=== PATIENT | female | born 1990 | race Two or more races ===

== ENCOUNTER 2019-12-29 16:15 | Observation (INO) | payer SELFPAY ==
[2019-12-29] MEDS ORDERED: PREN-96 PO (17:05)
[2019-12-29 17:44] LABS: Albumin 2.7 g/dL (3.4-5.0); BUN/Creatinine Ratio 10.7; Calcium 8.8 mg/dL (8.5-10.1); Potassium 3.9 mmol/L (3.5-5.1)
[2019-12-29 18:05] LABS: Bilirubin, Total 0.3 mg/dL (0.2-1.0); Total Protein 7.1 g/dL (6.4-8.2)
== END 2019-12-29 18:04 | disposition home or self-care (01) ==
LOC: UNDOADMOB 16:15 → LDRP 16:15 → UNDODISOB 18:04
PROVIDERS: ADMIT Specialist; ATTEND Specialist
DX: O62.9 Abnormality of forces of labor, unspecified (principal); Z3A.36 36 weeks gestation of pregnancy
CPT/HCPCS: 36415; 59025; 76818; 80053; 81002; G0378

== ENCOUNTER 2020-01-11 10:57 | Observation (INO) | payer SELFPAY ==
[~2020-01-11] VITALS: Ht 152.4 cm; Wt 74.4 kg
[~2020-01-11 10:57] MED LIST: PREN-96 PO
== END 2020-01-11 14:12 | disposition home or self-care (01) ==
LOC: LDRP 10:57
PROVIDERS: ADMIT Obstetrics & Gynecology; ATTEND Obstetrics & Gynecology
DX: O26.893 Other specified pregnancy related conditions, third trimester (principal); O99.891 Other specified diseases and conditions complicating pregnancy; R10.2 Pelvic and perineal pain; Z3A.38 38 weeks gestation of pregnancy
CPT/HCPCS: 59025; 76818; 81002; 84112; G0378; Q0114

== ENCOUNTER 2020-01-15 11:20 | Inpatient (IN) | payer MEDICAID ==
[~2020-01-15] VITALS: Ht 157.5 cm; Wt 78.9 kg
[2020-01-15] MEDS ORDERED: DERMOPLAST 60ML BOTTLE TOP PRN (12:15)
[2020-01-15] MEDS ORDERED: PHISODERM TOP SOLN 240ML BTL TOP PRN (12:15)
[2020-01-15] MEDS ORDERED: LIDOCAINE 2%HCL (LOCAL ANESTH.) INJ 20ML MDV IJ PRN (12:15)
[2020-01-15] MEDS ORDERED: WITCH HAZEL-GLYCERIN PAD TOP PRN (12:15)
[2020-01-15 13:30] LABS: Urine WBC None Seen /hpf (0 - 5)
[2020-01-15 13:34] LABS: Basophils # (auto) 0 10 ^3/uL (0-0.2); Eosinophils # (auto) 0.1 10 ^3/uL (0-0.8); Eosinophils % (auto) 0.7 % (0.0-7.0); Hemoglobin 10.8 g/dL (12.2-16.2); Nucleated Red Blood Cells % 0.1 %
[2020-01-15 13:35] LABS: Basophils % (auto) 0.2 % (0.0-2.0); Hematocrit 33.9 % (36.0-46.0); Lymphocytes # (auto) 1.3 10 ^3/uL (0.4-5.4); Lymphocytes % (auto) 15.2 % (10.0-50.0); Mean Corpuscular Hgb Conc. 31.8 g/dL (32.0-36.0); Mean Corpuscular Volume 81.9 fL (80.0-100.0); Monocytes # (auto) 0.7 10 ^3/uL (0-1.3); Monocytes % (auto) 8.2 % (0.0-12.0); Neutrophils # (auto) 6.3 10 ^3/uL (1.6-8.6); Neutrophils % (auto) 75.7 % (37.0-80.0); Platelet Count (auto) 254 10^3/uL (140-450); Red Blood Cells 4.14 10^6/uL (4.0-5.20); Red Cell Distribution Width 16.9 % (11.8-14.3); White Blood Cell 8.3 10^3/uL (4.4-10.8)
[2020-01-15 13:42] LABS: Urine Bacteria FEW /hpf (None Seen); Urine Blood Negative /uL (Negative); Urine Specific Gravity 1.002 (1.001-1.035)
[2020-01-15 13:50] LABS: INR 0.92 (0.9-1.15); Partial Thromboplastin Time 26.6 sec (23.0-31.2)
[2020-01-15 14:16] LABS: Albumin 2.7 g/dL (3.4-5.0); Calcium 8.7 mg/dL (8.5-10.1); Potassium 3.8 mmol/L (3.5-5.1)
[2020-01-15 14:20] LABS: BUN/Creatinine Ratio 7.9; Bilirubin, Total 0.3 mg/dL (0.2-1.0); Total Protein 7.1 g/dL (6.4-8.2)
[2020-01-15 14:20] LABS: Alcohol, Urine < 3.0 mg/dL (0-10); Amphetamine Screen, Urine NEGATIVE (NEGATIVE); Barbiturate Scree,Urine NEGATIVE (NEGATIVE); Benzodiazephine Screen, Urine NEGATIVE (NEGATIVE); Cannabinoid Screen, Urine NEGATIVE (NEGATIVE); Cocaine Screen, Urine NEGATIVE (NEGATIVE); Opiate Scree,Urine NEGATIVE (NEGATIVE); Phencyclidine Screen, Urine NEGATIVE (NEGATIVE)
[2020-01-15] MEDS ORDERED: LACT. RINGERS/OXYTOCIN 20UNITS 1,000 ML IV SCH (14:45)
[2020-01-15] MEDS ORDERED: TERBUTALINE SULFATE 1 MG/ML 1ML VIAL SC ONE (14:45)
[2020-01-15] MEDS ORDERED: CARBOPROST TROMETHAMINE 250 MCG/1ML VIAL IM PRN (14:45)
[2020-01-15] MEDS ORDERED: BUTORPHANOL TARTRATE 2 MG/1 ML VIAL IV PRN ×2 (14:45)
[2020-01-15] MEDS ORDERED: PROMETHAZINE HCL 25 MG/ML 1ML IV PRN (14:45)
[2020-01-15] MEDS ORDERED: METHYLERGONOVINE MALEATE 0.2 MG/ML AMP IM PRN (14:45)
[2020-01-15] MEDS ORDERED: LACT. RINGERS/OXYTOCIN 20UNITS 1,000 ML IV ONE (14:45)
[2020-01-15] MEDS: miSOPROStol 50 MCG per PRE-CUT 1/2 TAB PO PRN (15:26)
[2020-01-15] MEDS: LACTATED RINGER'S 1,000 ML IV SCH (15:27)
[2020-01-16] MEDS: miSOPROStol 50 MCG per PRE-CUT 1/2 TAB PO PRN ×2 (01:04→04:58)
[2020-01-16] MEDS: LACTATED RINGER'S 1,000 ML IV SCH ×2 (04:59→05:00)
[2020-01-16 05:07] LABS: RPR Non Reactive (Non Reactive)
[2020-01-16] MEDS: ACETAMINOPHEN 325 MG TAB PO PRN ×2 (08:28→15:21)
[2020-01-16] MEDS ORDERED: METHYLERGONOVINE MALEATE 0.2 MG/ML AMP IM ONE (08:30)
[2020-01-16] MEDS ORDERED: LACT. RINGERS/OXYTOCIN 20UNITS 1,000 ML IV ONE (08:30)
--- NOTE | 2020-01-16 08:50 | NUR ---
Ambulation: Patient OOB with standby assistance by RN. Patient ambulated to bathroom with steady gait. Patient able to void 500ml without difficulty. [facility] teaching provided with returned demonstration by patient. Clean gown provided and bed linen changed. Patient ambulated back to bed with steady gait and no distress noted.
[2020-01-16 09:30] VITALS: BP 110/60
[2020-01-16] MEDS ORDERED: LACT. RINGERS/OXYTOCIN 20UNITS 1,000 ML IV SCH (09:30)
--- NOTE | 2020-01-16 09:30 | NUR ---
RECEIVED REPORT, ASSUMED CARE
[2020-01-16] MEDS: IBUPROFEN 600 MG TAB PO PRN ×2 (09:40→18:45)
--- NOTE | 2020-01-16 10:44 | NUR ---
ENDORSED CARE TO DIAMOND YBARRA RN
[2020-01-16 11:00] VITALS: BP 107/58
--- NOTE | 2020-01-16 11:42 | NUR ---
Called/paged Dr. Baron called regarding fundal assessment. Waiting for call back.
--- NOTE | 2020-01-16 12:20 | NUR ---
returned call Dr. Baron returned call, updated on patient status and reason for call, orders received for cytotec. Will note new orders and continue care.
[2020-01-16] MEDS ORDERED: miSOPROStol 100 mcg TAB PR ONE (12:30)
[2020-01-16] MEDS ORDERED: miSOPROStol 100 mcg TAB SL ONE (12:30)
[2020-01-16] MEDS ORDERED: miSOPROStol 100 mcg TAB ONE (12:51)
--- NOTE | 2020-01-16 13:20 | NUR ---
Cytotec administered as ordered. Will reassess fundus and lochia in one hour.
--- NOTE | 2020-01-16 14:20 | NUR ---
Fundal Re-Assessment: Fundus firm, 1 below umbilicus with scant bleeding.
[2020-01-16 15:00] VITALS: BP 109/81
[2020-01-16 18:30] VITALS: BP 106/68
[2020-01-16 23:00] VITALS: BP 99/73
--- NOTE | 2020-01-17 | NUR ---
Tele consult in progress due to pt's depression scale score of 10. Education given. Pt verbalizes understanding.
[2020-01-17 03:30] VITALS: BP 96/58
[2020-01-17 07:15] VITALS: BP 102/69
--- NOTE | 2020-01-17 10:45 | NUR ---
IV removal IV DC'd with sterile technique, catheter fully intact. Pressure dressing applied to site. Patient tolerated procedure well.
[2020-01-17 11:00] VITALS: BP 111/79
[2020-01-17 15:00] VITALS: BP 108/70
--- NOTE | 2020-01-17 17:05 | NUR ---
Discharge: Discharge instructions given as ordered. Pt encouraged to follow up with [employer] SUPERVISOR as instructed. All questions and concerns addressed. Patient verbalized understanding. Medication reconciliation completed and copy given to patient. All required/requested vaccines given and copies of vaccinations given to patient. Patient encouraged to prepare to depart unit. Patient is waiting for to bring the car seat.
--- NOTE | 2020-01-19 09:30 | NUR ---
[employer] Weekend No Page, regarding social service consult for depression scale score of 10.
== END 2020-01-17 13:50 | disposition home or self-care (01) | DRG 560 ==
LOC: LDRP 11:20
PROVIDERS: ADMIT Obstetrics & Gynecology; ATTEND Obstetrics & Gynecology
PROC: 10E0XZZ Delivery of Products of Conception, External Approach (ICD-10-PCS; principal; 2020-01-16)
PROC: 3E0P7VZ Introduction of Hormone into Female Reproductive, Via Natural or Artificial Opening (ICD-10-PCS; 2020-01-16)
DX: O26.62 Liver and biliary tract disorders in childbirth (principal); K83.1 Obstruction of bile duct; Z3A.39 39 weeks gestation of pregnancy; Z91.19 Patient's noncompliance with other medical treatment and regimen; Z20.828 Contact with and (suspected) exposure to other viral communicable diseases; Z37.0 Single live birth
CPT/HCPCS: 36415; 59025; 59409; 80053; 80307; 81001; 85025; 85610; 85730; 86592; 86850; 86900; 86901; 87426; 96360; 96361; 96366; 96372; G0378; J2590

== ENCOUNTER 2023-05-29 13:46 | Observation (INO) | payer MEDICAID ==
[2023-05-29 14:56] LABS: Urine Amorphous Crystal FEW /hpf (None Seen); Urine Bacteria MANY /hpf (None Seen); Urine Blood Negative /uL (Negative); Urine Clarity Turbid (Clear); Urine Color Colorless (Yellow); Urine Protein, UAD Negative (Negative); Urine Specific Gravity 1.005 (1.001-1.035); Urine Urobilinogen Normal (Negative); Urine WBC 20 /hpf (0 - 5)
[2023-05-29 15:20] LABS: Basophils # (auto) 0 10 ^3/uL (0-0.2); Basophils % (auto) 0.2 % (0.0-2.0); Eosinophils # (auto) 0.1 10 ^3/uL (0-0.8); Eosinophils % (auto) 1.6 % (0.0-7.0); Hematocrit 31.8 % (36.0-46.0); Hemoglobin 9.9 g/dL (12.2-16.2); Lymphocytes # (auto) 1.6 10 ^3/uL (0.4-5.4); Lymphocytes % (auto) 17.4 % (10.0-50.0); Mean Corpuscular Hemoglobin 24.6 pg (28.0-32.0); Mean Corpuscular Hgb Conc. 31.2 g/dL (32.0-36.0); Mean Corpuscular Volume 78.7 fL (80.0-100.0); Monocytes # (auto) 0.7 10 ^3/uL (0-1.3); Monocytes % (auto) 7.2 % (0.0-12.0); Neutrophils # (auto) 6.9 10 ^3/uL (1.6-8.6); Neutrophils % (auto) 73.6 % (37.0-80.0); Nucleated Red Blood Cells % 0.1 %; Red Blood Cells 4.05 10^6/uL (4.0-5.20); Red Cell Distribution Width 18.8 % (11.8-14.3); Total Protein 6.9 g/dL (5.7-8.2); White Blood Cell 9.4 10^3/uL (4.4-10.8)
[2023-05-29 16:01] LABS: Alanine Aminotransferase 16 U/L (7-40); Alkaline Phosphatase 255 U/L (46-116); Anion Gap 8 (5-15); Aspartate Aminotransferase 20 U/L (13-40); BUN/Creatinine Ratio 7.7 (10.0-20.0); Bilirubin, Total 0.5 mg/dL (0.2-1.0); Blood Urea Nitrogen < 5 mg/dL (9-23); Calcium 9.6 mg/dL (8.7-10.4); Carbon Dioxide 21 mmol/L (20-30); Chloride 107 mmol/L (98-107); Glucose 72 mg/dL (74-106); Potassium 3.6 mmol/L (3.5-5.1); Sodium 136 mmol/L (136-145)
[2023-05-29] MEDS ORDERED: URSO300C2 PO (16:33)
[2023-05-29] MEDS ORDERED: CEPH250C PO (16:33)
== END 2023-05-29 16:40 | disposition home or self-care (01) ==
LOC: UNDOADMOB 13:46 → LDRP 13:46
PROVIDERS: ADMIT Obstetrics & Gynecology; ATTEND Obstetrics & Gynecology
DX: O24.419 Gestational diabetes mellitus in pregnancy, unspecified control (principal); O26.643 Intrahepatic cholestasis of pregnancy, third trimester; O26.893 Other specified pregnancy related conditions, third trimester; K83.1 Obstruction of bile duct; L29.9 Pruritus, unspecified; Z3A.34 34 weeks gestation of pregnancy; Z79.899 Other long term (current) drug therapy
CPT/HCPCS: 36415; 59025; 76818; 80053; 81001; 81002; 83036; 85025; 87086; 94760; G0378; 87088; 87186

== ENCOUNTER 2023-06-02 08:47 | Observation (INO) | payer MEDICAID ==
[~2023-06-02 08:47] MED LIST changes: +CEPH250C PO; +URSO300C2 PO
== END 2023-06-05 12:25 | disposition home or self-care (01) ==
LOC: LDRP 06-05 11:10 → UNDOADMOB 06-05 11:10 → LDRP 06-05 11:12
PROVIDERS: ADMIT Obstetrics & Gynecology; ATTEND Obstetrics & Gynecology
DX: O24.419 Gestational diabetes mellitus in pregnancy, unspecified control (principal); O62.9 Abnormality of forces of labor, unspecified; O26.643 Intrahepatic cholestasis of pregnancy, third trimester; K83.1 Obstruction of bile duct; O26.893 Other specified pregnancy related conditions, third trimester; R10.12 Left upper quadrant pain; Z3A.35 35 weeks gestation of pregnancy
CPT/HCPCS: 59025; 81002; 82948; 82962; G0378

== ENCOUNTER 2023-06-10 14:36 | Observation (INO) | payer MEDICAID | END 2023-06-10 16:58 | disposition home or self-care (01) | LOC: LDRP 14:36 | PROVIDERS: ADMIT Obstetrics & Gynecology; ATTEND Obstetrics & Gynecology | DX: O24.419 Gestational diabetes mellitus in pregnancy, unspecified control (principal); O26.893 Other specified pregnancy related conditions, third trimester; N89.8 Other specified noninflammatory disorders of vagina; Z3A.36 36 weeks gestation of pregnancy | CPT/HCPCS: 59025; 76818; 81002; 82948; 82962; 94760; G0378 ==

== ENCOUNTER 2023-06-19 11:10 | Observation (INO) | payer MEDICAID ==
[~2023-06-19] VITALS: Ht 152.4 cm; Wt 81.6 kg
[2023-06-19] MEDS: BETAMETHASONE ACET (30mg/5ml) 5ml Vial 6mg/ml IM ONE (12:30)
== END 2023-06-19 12:42 | disposition home or self-care (01) ==
LOC: UNDOADMOB 11:10 → LDRP 11:10 → UNDODISOB 12:42
PROVIDERS: ADMIT Obstetrics & Gynecology; ATTEND Obstetrics & Gynecology
DX: O24.419 Gestational diabetes mellitus in pregnancy, unspecified control (principal); O26.643 Intrahepatic cholestasis of pregnancy, third trimester; K83.1 Obstruction of bile duct; Z3A.37 37 weeks gestation of pregnancy
CPT/HCPCS: 59025; 76818; 81002; 82962; 94760; 96372; G0378; J0702

== ENCOUNTER 2023-06-20 08:05 | Inpatient (IN) | payer MEDICAID ==
[~2023-06-20] VITALS: Ht 153.7 cm; Wt 83.0 kg
[2023-06-20] MEDS ORDERED: BUTORPHANOL TARTRATE 2 MG/1 ML VIAL IV PRN ×2 (09:00)
[2023-06-20] MEDS ORDERED: LIDOCAINE 2%HCL (LOCAL ANESTH.) INJ 20ML MDV IJ PRN (09:00)
[2023-06-20 09:23] LABS: Basophils # (auto) 0 10 ^3/uL (0-0.2); Eosinophils # (auto) 0 10 ^3/uL (0-0.8); Eosinophils % (auto) 0.1 % (0.0-7.0); Hematocrit 28.1 % (36.0-46.0); Lymphocytes # (auto) 1.2 10 ^3/uL (0.4-5.4); Monocytes # (auto) 0.6 10 ^3/uL (0-1.3)
[2023-06-20 09:25] LABS: Basophils % (auto) 0.2 % (0.0-2.0); Hemoglobin 8.6 g/dL (12.2-16.2); Lymphocytes % (auto) 10.5 % (10.0-50.0); Mean Corpuscular Hemoglobin 23.2 pg (28.0-32.0); Mean Corpuscular Hgb Conc. 30.7 g/dL (32.0-36.0); Mean Corpuscular Volume 75.7 fL (80.0-100.0); Monocytes % (auto) 5.4 % (0.0-12.0); Neutrophils # (auto) 9.3 10 ^3/uL (1.6-8.6); Neutrophils % (auto) 83.8 % (37.0-80.0); Nucleated Red Blood Cells % 0.1 %; Red Blood Cells 3.71 10^6/uL (4.0-5.20); White Blood Cell 11.1 10^3/uL (4.4-10.8)
[2023-06-20 09:29] LABS: Red Cell Distribution Width 20.1 % (11.8-14.3)
[2023-06-20 09:34] LABS: Urine Bacteria MOD /hpf (None Seen); Urine Blood Negative /uL (Negative); Urine Clarity Clear (Clear); Urine Protein, UAD Negative (Negative); Urine Specific Gravity 1.006 (1.001-1.035); Urine Urobilinogen Normal (Negative); Urine WBC 3 /hpf (0 - 5); Urine pH 6.5 (5.0-9.0)
[2023-06-20 09:35] LABS: INR 0.9 (0.9-1.15); Prothrombin Time 9.6 sec (9.3-11.8)
[2023-06-20 09:37] LABS: Urine Color Yellow (Yellow)
[2023-06-20 09:38] LABS: Amphetamine Screen, Urine Neg (NEGATIVE); Barbiturate Scree,Urine Neg (NEGATIVE); Benzodiazephine Screen, Urine Neg (NEGATIVE)
[2023-06-20 09:39] LABS: Cannabinoid Screen, Urine Neg (NEGATIVE); Cocaine Screen, Urine Neg (NEGATIVE); Opiate Scree,Urine Neg (NEGATIVE); Phencyclidine Screen, Urine Neg (NEGATIVE)
[2023-06-20 09:41] LABS: Alanine Aminotransferase 13 U/L (7-40); Alkaline Phosphatase 296 U/L (46-116); Anion Gap 8 (5-15); Aspartate Aminotransferase 17 U/L (13-40); BUN/Creatinine Ratio 11.1 (10.0-20.0); Bilirubin, Total 0.4 mg/dL (0.2-1.0); Blood Urea Nitrogen 8 mg/dL (9-23); Calcium 9.6 mg/dL (8.5-10.1); Carbon Dioxide 21 mmol/L (20-30); Chloride 109 mmol/L (98-107); Glucose 94 mg/dL (74-106); Potassium 4.1 mmol/L (3.5-5.1); Sodium 138 mmol/L (136-145); Total Protein 6.8 g/dL (5.7-8.2)
[2023-06-20] MEDS: LACTATED RINGER'S 1,000 ML IV SCH (10:38)
[2023-06-20] MEDS: miSOPROStol 50 MCG per PRE-CUT 1/2 TAB PO PRN (10:42)
[2023-06-20] MEDS: ACCU-CHEK COMFORT CURVE STRIP VI SCH (14:00)
[2023-06-20] MEDS ORDERED: CARBOPROST TROMETHAMINE 250 MCG/1ML VIAL IM PRN (14:45)
[2023-06-20] MEDS: TRANEXAMIC ACID 1,000 MG in SODIUM CHL 0.9% 100 ML IV ONE (14:45)
[2023-06-20] MEDS ORDERED: ACETAMINOPHEN 650 MG RECT SUPP PR PRN (14:45)
[2023-06-20] MEDS: LIDOCAINE HCL 2 %PF INJ 10ML AMP IJ ONE (16:30)
[2023-06-20] MEDS: NALOXONE HCL 0.4 MG/ML VIAL IV ONE (16:30)
[2023-06-20] MEDS: fentaNYL CITRATE 100 MCG/2 ML VL IV ONE (16:30)
[2023-06-20] MEDS ORDERED: fentaNYL 400mCg/200ml W ROPIVA 200 ML EPI SCH (16:30)
[2023-06-20] MEDS: LACTATED RINGER'S 1,000 ML IV ONE (16:30)
[2023-06-20] MEDS: ePHEDrine SULFATE 50 MG/ML AMP IV ONE (16:30)
[2023-06-20] MEDS: D5W/LACTATED RINGERS 1,000 ML IV SCH (17:16)
[2023-06-20] MEDS: ACYCLOVIR 400 MG TAB PO SCH (18:37)
[2023-06-20] MEDS ORDERED: URSODIOL 300MG CAPSULE PO SCH (21:00)
[2023-06-20] MEDS ORDERED: DEXTROSE (50%) 50ML SYRG IV PRN (21:45)
[2023-06-20] MEDS: URSODIOL 300 MG CAP PO SCH (21:51)
[2023-06-20] MEDS: DIPHENOXYLATE W/ATROPINE 2.5 MG TAB PO SCH (22:00)
[2023-06-21] MEDS: InsuLIN REG 1unit/0.01ml Soln (100units/ml) SC SCH
[2023-06-21] MEDS: WITCH HAZEL-GLYCERIN PAD TOP PRN (01:02)
[2023-06-21] MEDS: PHISODERM TOP SOLN 240ML BTL TOP PRN (01:02)
[2023-06-21] MEDS: DERMOPLAST 60ML BOTTLE TOP PRN (01:02)
[2023-06-21] MEDS: LACT. RINGERS/OXYTOCIN 20UNITS 1,000 ML IV SCH (05:31)
[2023-06-21] MEDS: ePHEDrine SULFATE 50 MG/ML AMP IV ONE (07:00)
[2023-06-21] MEDS: NALOXONE HCL 0.4 MG/ML VIAL IV ONE (07:00)
[2023-06-21] MEDS: LACTATED RINGER'S 1,000 ML IV ONE (09:26)
[2023-06-21] MEDS: ROPIVACAINE HCL 200 ML ONE (09:32)
[2023-06-21] MEDS ORDERED: LACT. RINGER'S W OXYTOCIN 20UNITS/1000 ML IV SCH (10:00)
[2023-06-21] MEDS: METHYLERGONOVINE MALEATE 0.2 MG/ML AMP IM PRN (10:14)
[2023-06-21] MEDS: LACT. RINGERS/OXYTOCIN 20UNITS 500 ML IV ONE ×2 (10:15→10:20)
[2023-06-21] MEDS: miSOPROStol 100 mcg TAB PR PRN (10:21)
[2023-06-21] MEDS: miSOPROStol 100 mcg TAB SL PRN (10:21)
[2023-06-21] MEDS ORDERED: ACETAMINOPHEN 325 MG TAB PO PRN (10:45)
[2023-06-21] MEDS: ACYCLOVIR 400 MG TAB PO SCH ×2 (11:05→19:35)
[2023-06-21 15:23] VITALS: BP 131/62; PULSE 59; RESP 18; TEMP 100; O2SAT 94
[2023-06-21] MEDS: IBUPROFEN 600 MG TAB PO PRN (15:29)
[2023-06-21 17:57] LABS: Basophils # (auto) 0 10 ^3/uL (0-0.2); Basophils % (auto) 0.2 % (0.0-2.0); Eosinophils # (auto) 0 10 ^3/uL (0-0.8); Eosinophils % (auto) 0.2 % (0.0-7.0); Hematocrit 30.5 % (36.0-46.0); Hemoglobin 9.3 g/dL (12.2-16.2); Lymphocytes # (auto) 1.3 10 ^3/uL (0.4-5.4); Mean Corpuscular Hemoglobin 22.8 pg (28.0-32.0); Nucleated Red Blood Cells % 0.1 %; Red Blood Cells 4.07 10^6/uL (4.0-5.20)
[2023-06-21 18:00] LABS: Mean Corpuscular Hgb Conc. 30.3 g/dL (32.0-36.0); Monocytes # (auto) 1.2 10 ^3/uL (0-1.3); Monocytes % (auto) 8.2 % (0.0-12.0); Neutrophils # (auto) 11.8 10 ^3/uL (1.6-8.6); Neutrophils % (auto) 82.4 % (37.0-80.0); Red Cell Distribution Width 19.7 % (11.8-14.3); White Blood Cell 14.3 10^3/uL (4.4-10.8)
[2023-06-21 19:00] VITALS: BP 108/53; PULSE 64; RESP 16; TEMP 98.5; O2SAT 95
[2023-06-21 22:40] VITALS: BP 114/59; PULSE 64; RESP 16; TEMP 98.4; O2SAT 94
[2023-06-22 03:15] VITALS: BP 106/57; PULSE 60; RESP 16; TEMP 98.2; O2SAT 97
[2023-06-22 07:30] VITALS: BP 118/80; PULSE 62; RESP 17; TEMP 97.9; O2SAT 98
[2023-06-22 11:30] VITALS: BP 106/65; PULSE 78; RESP 16; TEMP 98.7; O2SAT 98
[2023-06-23 07:06] LABS: RPR Non Reactive (Non Reactive)
[2023-06-25 18:06] LABS: Treponema pallidum Ab (FTA-Ab) Non Reactive (Non Reactive)
== END 2023-06-22 13:57 | disposition home or self-care (01) | DRG 560 ==
LOC: LDRP 08:05
PROVIDERS: ADMIT Obstetrics & Gynecology; ATTEND Obstetrics & Gynecology
PROC: 10E0XZZ Delivery of Products of Conception, External Approach (ICD-10-PCS; principal; 2023-06-21)
PROC: 3E0DXGC Introduction of Other Therapeutic Substance into Mouth and Pharynx, External Approach (ICD-10-PCS; 2023-06-21)
PROC: 3E0R3BZ Introduction of Anesthetic Agent into Spinal Canal, Percutaneous Approach (ICD-10-PCS; 2023-06-21)
PROC: 00HU33Z Insertion of Infusion Device into Spinal Canal, Percutaneous Approach (ICD-10-PCS; 2023-06-21)
DX: O60.14X0 Preterm labor third trimester with preterm delivery third trimester, not applicable or unspecified (principal); Z37.0 Single live birth; K83.1 Obstruction of bile duct; O26.643 Intrahepatic cholestasis of pregnancy, third trimester; O24.420 Gestational diabetes mellitus in childbirth, diet controlled; Z3A.37 37 weeks gestation of pregnancy
CPT/HCPCS: 36415; 59025; 59200; 59409; 62282; 80053; 80307; 81001; 81002; 82962; 85025; 85610; 85730; 86592; 86850; 86900; 86901; 94760; 96360; 96361; 96365; 96366; G0378; J2590